=== PATIENT | male | born 1955 | race Caucasian/White ===

== ENCOUNTER → 2019-05-22 | Outpatient (CLI) | payer BC ==
--- NOTE | 2019-05-22 16:42 | RADIOLOGY REPORT (SQ) ---
EXAM DESCRIPTION: PET CT SKULL/THIGH COMPLETED DATE/TIME: 05/22/2019 3:53 pm REASON FOR STUDY: C64.2 MALIGNANT NEOPLASM OF LEFT KIDNEY, EXCEPT RENAL PELVIS C64.2 MALIGNANT NEOP LASM OF LEFT KIDNEY, EXCEPT RENAL PELVIS COMPARISON: None available RADIONUCLIDE AND DOSE: 10.79 MCi F18 FDG The route of agent administration: Intravenous FASTING BLOOD SUGAR: 103 mg/dl CONTRAST TYPE AND DOSE: No CT contrast given. TECHNIQUE: Blood glucose level was verified. Above dose of FDG was injected intravenously. 2-D seg mented attenuation correction images were obtained from the base of the skull to the midthighs. Nonc ontrast CT images were obtained for attenuation correction and fusion with emission images. CT image s were performed without oral or intravenous contrast and are not sensitive for parenchymal lesions. A series of overlapping emission PET images were obtained. Images reviewed and manipulated at [facility] work station by the radiologist. Images stored on PACS. LIMITATIONS: None. FINDINGS: HEAD AND NECK: Activity at the vocal folds without CT correlate, likely physiologic. No o ther areas of abnormal metabolic activity in the soft tissues of the head and neck. CHEST: Ill-defined left suprahilar opacity without significant increased FDG uptake (max SUV 3.6). T here are smaller nodular opacities within the left upper lobe, largest measuring 1.0 cm without signi ficant increased FDG uptake (max SUV 1.2). No other areas of abnormal FDG uptake within the thorax. ABDOMEN AND PELVIS: Background hepatic activity max SUV 3.4. Postsurgical changes from the left neph rectomy. There is ill-defined irregular soft tissue in the surgical bed which abuts the pancreatic t ail. Delineating pancreatic tissue from adjacent soft tissue is limited on this noncontrast exam. N o abnormal FDG uptake (max SUV 1.8). No other abnormal pathologic uptake within the abdomen or pelvi s. Physiologic activity within the gastrointestinal and genitourinary system. PROXIMAL LOWER EXTREMITIES: No areas of abnormal metabolic activity in the soft tissues of the lower extremities. BONES: No focal abnormal FDG uptake within the visualized skeleton. ADDITIONAL CT FINDINGS: No acute findings. Ill-defined left suprahilar opacity on the noncontrast ex am. 11 mm left upper lobe peripheral nodular opacity. Scattered hepatic cyst. Postsurgical changes from the left nephrectomy with ill-defined irregular soft tissue in the surgical bed which abuts the pancreatic tail measuring approximately 2.9 x 2.4 cm (series 4, image 141). IMPRESSION: 1. Ill-defined left suprahilar nodular opacity compatible with biopsy-proven recurrence . No significant FDG uptake (max SUV 3.6). Additional smaller left upper lobe pulmonary nodule also suspicious for metastatic disease but without significant FDG uptake. PET-CT may be of limited bene fit in this patient with known biopsy-proven recurrence as no significant uptake is appreciated withi n these lesions. 2. Postsurgical changes from the left nephrectomy. There is soft tissue fullness within the region of the surgical bed which abuts the pancreatic tail. Findings suspicious for disease recurrence in t he surgical bed although evaluation limited without intravenous contrast. Recommend dedicated contra sted abdomen CT for further characterization. 3. No significant abnormal FDG uptake within the previously described C7 and T9 the vertebral bodies . Findings were discussed with Dr. Chun At 1632 hours on 05/12/2019 TECHNICAL DOCUMENTATION: JOB ID: [id number] [employer]- All Rights Reserved Reading location - IP/workstation name: [email or web address]
== END ==
LOC: RAD 08:13
PROVIDERS: ATTEND Internal Medicine
DX: C64.2 Malignant neoplasm of left kidney, except renal pelvis (principal)
CPT/HCPCS: 78815; A9552

== ENCOUNTER 2019-11-05 09:53 | Observation (INO) | payer BC ==
[2019-11-05 10:36] LABS: HEMATOCRIT 38.3 % (37.9-51.0); HEMOGLOBIN 13.6 g/dL (13.5-17.0); MEAN CORPUSCULAR HEMOGLOBIN 34.3 pg (27.0-33.4); MEAN CORPUSCULAR HGB CONC 35.5 g/dL (32.0-36.0); MEAN CORPUSCULAR VOLUME 97 fl (80-97); PLATELET COUNT 234 10^3/uL (150-450); RED BLOOD COUNT 3.96 10^6/uL (4.35-5.55); RED CELL DISTRIBUTION WIDTH 15.3 % (11.5-14.0)
[2019-11-05 11:00] LABS: ALKALINE PHOSPHATASE 78 U/L (38-126); ANION GAP 11 (5-19); ASPARTATE AMINO TRANSFERASE 27 U/L (17-59); BILIRUBIN,TOTAL 0.9 mg/dL (0.2-1.3); BLOOD UREA NITROGEN 14 mg/dL (7-20); CALCIUM 9.4 mg/dL (8.4-10.2); CARBON DIOXIDE 25 mmol/L (22-30); CHLORIDE 98 mmol/L (98-107); GLUCOSE 267 mg/dL (75-110); POTASSIUM 4.3 mmol/L (3.6-5.0); TOTAL PROTEIN 6.3 g/dL (6.3-8.2)
[2019-11-05 11:01] LABS: ALCOHOL < 10 mg/dL (NONE DETECTED)
[2019-11-05 11:11] LABS: ABSOLUTE MONOCYTES # (MANUAL) 0.6 10^3/uL (0.1-1.4); BAND NEUTROPHILS % (MANUAL) 1 % (3-5); BASOPHILS % (MANUAL) 0 % (0-2); EOSINOPHILS % (MANUAL) 0 % (0-6); LYMPHOCYTES % (MANUAL) 7 % (13-45); MONOCYTES % (MANUAL) 5 % (3-13); SEGMENTED NEUTROPHILS % (MAN) 86 % (42-78); TOTAL CELLS COUNTED 100
[2019-11-05 11:12] LABS: ANISOCYTOSIS SLIGHT; PLATELET COMMENT ADEQUATE; PLATELET LARGE PRESENT; POLYCHROMASIA SLIGHT; TOXIC GRANULATION 2+
[2019-11-05] MEDS ORDERED: NORMAL SALINE 1000 ML 1,000 ML IV ONE (11:27)
[2019-11-05 12:01] LABS: INTERNATIONAL RATION (INR) 1.05; PROTHROMBIN TIME 13.7 SEC (11.4-15.4)
[2019-11-05 12:02] LABS: PARTIAL THROMBOPLASTIN TIME 26.4 SEC (23.5-35.8)
[2019-11-05 12:04] LABS: D-DIMER 0.37 ug/mL (0.00-0.50)
[2019-11-05 12:21] LABS: NT PRO BNP 176 pg/mL (<125)
[2019-11-05 12:22] LABS: TROPONIN I < 0.012 ng/mL
--- NOTE | 2019-11-05 12:31 | RADIOLOGY REPORT (SQ) ---
EXAM DESCRIPTION: CT HEAD WITHOUT IMAGES COMPLETED DATE/TIME: 11/05/2019 12:10 pm REASON FOR STUDY: seizure today/kidney cancer with met to lung COMPARISON: None. TECHNIQUE: Axial images acquired through the brain without intravenous contrast. Images reviewed wi th bone, brain and subdural windows. Additional sagittal and coronal reconstructions were generated. Images stored on PACS. All CT scanners at this facility use dose modulation, iterative reconstruction, and/or weight based d osing when appropriate to reduce radiation dose to as low as reasonably achievable (ALARA). [facility]: Dose Right [facility]: CareDose [facility]: Dose Right [facility]: Teradose 4D [facility]: Encap RADIATION DOSE: CT Rad equipment meets quality standard of care and radiation dose reduction techniq ues were employed. CTDIvol: 53.2 mGy. DLP: 1097 mGy-cm. LIMITATIONS: None. FINDINGS: There is no acute intracranial hemorrhage, vascular territorial infarct, extra-axial fluid collection, mass effect or midline shift. The kennedy-white matter differentiation is preserved. Ther e is no effacement of the cerebral sulci or basal subarachnoid cisterns. The caliber of the ventricles is concordant with the degree of sulcation. The left maxillary sinus is opacified. The other paranasal sinuses and ethmoid air cells are clear. The orbits and globes are intact. There is no fracture of the calvarium. IMPRESSION: 1 No acute intracranial abnormality. 2. Opacification of the left maxillary sinus - clinical correlation to exclude an acute sinusitis is recommended. EVIDENCE OF ACUTE STROKE: NO. COMMENT: Quality ID # [id number]: Final reports with documentation of one or more dose reduction techniques (e.g., Automated exposure control, adjustment of the mA and/or kV according to patient size, use of iterative reconstruction technique) TECHNICAL DOCUMENTATION: JOB ID: [id number] 2010 [employer]- All Rights Reserved Reading location - IP/workstation name: [email or web address]
--- NOTE | 2019-11-05 13:02 | RADIOLOGY REPORT (SQ) ---
EXAM DESCRIPTION: MRI HEAD WITHOUT IMAGES COMPLETED DATE/TIME: 11/05/2019 12:37 pm REASON FOR STUDY: seizure/kidney cancer w met to lung COMPARISON: None. TECHNIQUE: Multiplanar imaging includes non-contrasted T1, T2, FLAIR, and diffusion with ADC map seq uences. Images stored on PACS. LIMITATIONS: None. FINDINGS: The sella turcica, corpus callosum, and craniocervical junction are normal in appearance. There is no restricted diffusion on the DWI. The focal and confluent areas of high T2/FLAIR signal s cattered throughout the supratentorial subcortical and periventricular white matter are nonspecific a nd could represent the sequela of chronic microvascular ischemia. There is no acute intracranial hem orrhage, vasogenic edema, extra-axial fluid collection, mass effect or midline shift. The kennedy-white matter differentiation is preserved. There is no effacement of the cerebral sulci or basal subarach noid cisterns. The caliber of the ventricles is concordant with the degree of sulcation. The intracranial vascular flow voids are preserved. There is no susceptibility artifact on the gradi ent sequence. There is a subperiosteal lipoma along the vertex of the calvarium. The left maxillary sinus is opaci fied. IMPRESSION: 1. No acute intracranial abnormality. 2. Focal and confluent areas of high T2/FLAIR signal scattered throughout the supratentorial perivent ricular and subcortical white matter are nonspecific and could represent the sequela of chronic micro vascular ischemia. 3. Opacification of the left maxillary sinus. Correlation with clinical signs and symptoms is recom mended to exclude an acute sinusitis. EVIDENCE OF ACUTE STROKE: NO. TECHNICAL DOCUMENTATION: JOB ID: [id number] [employer]- All Rights Reserved Reading location - IP/workstation name: [email or web address]-
[2019-11-05] MEDS ORDERED: LISINOPRIL 10 MG TABLET PO ONE (13:13)
[2019-11-05] MEDS ORDERED: ATENOLOL 50 MG TABLET PO ONE (13:14)
--- NOTE | 2019-11-05 13:50 | RADIOLOGY REPORT (SQ) ---
EXAM DESCRIPTION: CHEST SINGLE VIEW IMAGES COMPLETED DATE/TIME: 11/05/2019 1:32 pm REASON FOR STUDY: Seizure/HTN COMPARISON: PET from 05/22/2019. EXAM PARAMETERS: NUMBER OF VIEWS: One view. TECHNIQUE: An AP view of the chest was obtained. RADIATION DOSE: NA LIMITATIONS: None. FINDINGS: LUNGS AND PLEURA: The costophrenic sulci are blunted. There is an 15 x 10 mm ovoid nodule in the lateral aspect of the inferior left hemithorax. There is no consolidation or pneumothorax MEDIASTINUM AND HILAR STRUCTURES: No mediastinal or hilar contour abnormality. HEART AND VASCULAR STRUCTURES: The cardiac silhouette and pulmonary vasculature are within normal herrera its. BONES: No acute findings. HARDWARE: None in the chest. OTHER: Low inspiratory lung volumes. IMPRESSION: 1. Low inspiratory lung volumes with small pleural effusions and bibasilar atelectasis. 2. Probable 15 x 10 mm ovoid nodule in the lateral aspect of the inferior left hemithorax. TECHNICAL DOCUMENTATION: JOB ID: [id number] 2010 [employer]- All Rights Reserved Reading location - IP/workstation name: [email or web address]
--- NOTE | 2019-11-05 14:27 | ER Document Report ---
Entered by ZHAO GANDHI SCRIBE 11/05/19 1115 Acting as scribe for:IVY BILL MD ED General - General Chief Complaint: Probable Seizure Stated Complaint: POSSIBLE SEIZURE Time Seen by Provider: 11/05/19 10:22 Primary Care Provider: NICHO MATHEWS NP [Primary Care Provider] - Follow up as needed Information source: Patient Notes: This 64-year-old male presents to the emergency department by request of physician's office after patient had a possible seizure witnessed in the doctor's office during his appointment today. Patient explained that he has been having a petit mal seizure once a day for the past several weeks. Patient states that this morning after his shower, he had a petit mal seizure and then while at his doctor's appointment he had another episode. Physician told patient to report to the emergency department for a seizure work-up. Patient notes that he feels that the onset of his seizures are due to exertion. Patient reports that today's episode lasted longer than usual. Patient describes that he just "feels like I'm falling asleep" and his states he is unconscious during the duration of the episode "which lasts a minute or two". Patient reports dizziness. Patient denies tongue biting, headache, chest pain, fecal incontinence, urinary incontinence or head trauma. 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 Patient states that he recently had T-cell infusion with no relief so he was started on the high-dose prednisone (100 mg every day). Patient is stating that he has "stepped down" to 10 mg per week. TRAVEL OUTSIDE OF THE [place] IN LAST 30 DAYS: No - Related Data Allergies/Adverse Reactions: No Known Allergies Allergy (Unverified 11/05/19 11:08) Home Medications: lisinopril, prednisone, "and some others that I cannot remember right now". Past Medical History - General Information source: Patient - Social History Smoking Status: Never Smoker Cigarette use (# per day): No Chew tobacco use (# tins/day): No Lives with: Spouse/Significant other Family History: Reviewed & Not Pertinent Patient has homicidal ideation: No Pulmonary Medical History: Reports: Hx Sleep Apnea Malignancy Medical History: Reports Hx Lung Cancer, Reports Hx Renal (Kidney) Cancer Past Surgical History: Reports: Hx Kidney (Renal Surgery) - Nephrectomy-left Review of Systems - Review of Systems Constitutional: No symptoms reported EENT: No symptoms reported Cardiovascular: See HPI, Dizziness. denies: Chest pain Respiratory: No symptoms reported Gastrointestinal: See HPI. denies: Fecal incontinence Genitourinary: See HPI. denies: Incontinence Male Genitourinary: No symptoms reported Musculoskeletal: No symptoms reported Skin: No symptoms reported Hematologic/Lymphatic: No symptoms reported Neurological/Psychological: See HPI, Seizure, Lost consciousness. denies: Headaches -: Yes All other systems reviewed and negative Physical Exam - Vital signs Vitals: Temp Pulse Resp BP Pulse Ox 97.9 F 130 H 25 H 177/114 H 100 11/05/19 10:00 11/05/19 10:00 11/05/19 10:00 11/05/19 10:00 11/05/19 10:00 - Notes Notes: Physical Exam: General: Alert, appears well. HEENT: Normocephalic. Atraumatic. PERRL. Extraocular movements intact. Oropharynx clear. Neck: Supple. Non-tender. Respiratory: No respiratory distress. Clear and equal breath sounds bilaterally. Cardiovascular: Regular rate and rhythm. Abdominal: Normal Inspection. Non-tender. No distension. Normal Bowel Sounds. Back: No gross abnormalities. Extremities: Moves all four extremities. Upper extremities: Normal inspection. Normal ROM. Lower extremities: Normal inspection. No edema. Normal ROM. Neurological: Normal cognition. AAOx4. Normal speech. NIH:0 Psychological: Normal affect. Normal Mood. Skin: Warm. Dry. Normal color. Course - Vital Signs Vital signs: Temp Pulse Resp BP Pulse Ox 98.2 F 130 H 22 H 136/102 H 98 11/05/19 10:24 11/05/19 10:00 11/05/19 13:29 11/05/19 13:29 11/05/19 13:29 - Laboratory Result Diagrams: 11/05/19 10:20 11/05/19 10:20 Laboratory results interpreted by me: 11/05/19 11/05/19 11/05/19 10:20 10:20 10:20 WBC 12.0 H RBC 3.96 L MCH 34.3 H RDW 15.3 H Seg Neuts % (Manual) 86 H Band Neutrophils % 1 L Lymphocytes % (Manual) 7 L Abs Neuts (Manual) 10.4 H Sodium 133.9 L Glucose 267 H NT-Pro-B Natriuret Pep 176 H Discharge - Discharge Clinical Impression: Petit mal seizure status, Malignant neoplasm of kidney metastatic to lung, COPD (chronic obstructive pulmonary disease), Hyperglycemia, drug-induced Condition: Good Disposition: ADMITTED OBSERVATION Admitting Provider: Ernie (Hospitalist) Unit Admitted: Telemetry Referrals: NICHO MATHEWS, DIRECTOR OF DIVERSITY AND INCLUSION [Primary Care Provider] - Follow up as needed ED NIH Stroke Scale - NIH Stroke Scale *: 1. NIH scale should be completed with appropriate accompanying assessment tools. *: 2. The NIH should reflect what the patient is capable of doing and should not be coached by the clinician. 1a. Level of Consciousness: 0=Alert;keenly responsive -: 1=Drowsy -: 2=Obtunded -: 3=Coma/unresponsive or reflex to noxious stimuli. 1a. Responses: 0 1b. Orientation Questions: a. What month is it? -: b. How old are you? -: 0=Answers both questions correctly. -: 1=Answers one question correctly or patient is intubated or has orotracheal trauma. -: 2=Answers neither question correctly. 1c. Response to commands: a. Open and close eyes? -: b. Piccolo Mechanic and release hand? -: Credit is given despite weakness. Demonstration of task is permitted. Substitute command if hands cannot be used. -: 0=Performs both tasks correctly -: 1=Performs one task correctly -: 2=Performs neither task correctly 1c. Responses: 0 2. Gaze: Establish eye contact and instruct patient to "Follow my finger" -: 0=Normal -: 1=Partial gaze palsy. Gaze is abnormal in one or both eyes, but where forced deviation or total gaze paresis is not present. -: 2=Forced deviation or total gaze paresis. 2. Responses: 0 3. Visual Shirley: Sees fingers in all four quadrants. -: 0=No visual loss. -: 1=Partial hemianopsia. -: 2=Complete hemianopsia. -: 3=Bilateral hemianopsia (including Cortical blindness) 3. Responses: 0 4. Facial Movement: Instruct patient to: -: a. Show me your teeth -: b. Raise your eyebrows -: c. Close your eyes -: d. Smile -: 0=Normal symmetrical movement -: 1=Minor paralysis (flattened nasolabial fold, asymmetry on smiling). -: 2=Partial paralysis (total or near total paralysis of lower face). -: 3=Complete paralysis of upper and lower face 4. Responses: 0 5. Motor functions (left arm): Alternate sides and extend each arm with palms down (90 degrees if sitting or 45 degrees for supine). -: 0=No drift;limb holds for full 10 seconds. -: 1=Drift; limb holds but drifts down before full 10 seconds, but does not hit bed. -: 2=Some effort against gravity; limb cannot get to or maintain position. -: 3=No effort against gravity; limb falls. -: 4=No movement. -: UN=Amputation, joint fusion, explain in comments. 5. Responses (left arm): 0 5. Motor Functions (right arm): Alternate sides and extend each arm with palms down (90 degrees if sitting or 45 degrees for supine). -: 0=No drift;limb holds for full 10 seconds. -: 1=Drift; limb holds but drifts down before full 10 seconds, but does not hit bed. -: 2=Some effort against gravity; limb cannot get to or maintain position. -: 3=No effort against gravity; limb falls. -: 4=No movement. -: UN=Amputation, joint fusion, explain in comments. 6. Motor Functions (left leg): With patient lying supine, alternate sides and extend each leg (30 degrees always while supine). -: 0=No drift, leg holds position for full 5 seconds -: 1=Drift; leg falls before full 5 seconds but does not hit bed. -: 2=Some effort against gravity, leg falls to bed but some effort against gravity. -: 3=No effort against gravity, leg falls to bed immediately. -: 4=No movement. -: UN=Amputation, joint fusion; explain in comments. 6. Responses (left leg): 0 6. Motor Functions (right leg): With patient lying supine, alternate sides and extend each leg (30 degrees always while supine). -: 0=No drift, leg holds position for full 5 seconds -: 1=Drift; leg falls before full 5 seconds but does not hit bed. -: 2=Some effort against gravity, leg falls to bed but some effort against gravity. -: 3=No effort against gravity, leg falls to bed immediately. -: 4=No movement. -: UN=Amputation, joint fusion; explain in comments. 7. Limb Ataxia: With eyes open instruct patient to: -: a. "Touch your finger to your nose". -: b. "Touch your heel to your jean" -: 0=Absent -: 1=Present in one limb. -: 2=Present in two limbs. -: UN=Amputation or joint fusion; explain in comments. 7. Responses: 0 8. Sensory: Test sensation using pinprick or noxious stimuli. Test as many body parts as possible. -: 0=Normal;no sensory loss -: 1=Mile to moderate sensory loss (patient feels pin prick but is less sharp on affected side). -: 2=Severe or total sensory loss. 8. Responses: 0 9. Best Language: Instruct patient to: -: a. "Describe what you see in this picture." -: b. "Name the items in this picture." -: c. "Read these sentences." -: 0=No aphasia, normal -: 1=Mild to moderate aphasia. -: 2=Severe aphasia -: 3=Mute, global aphasia, no usable speech or auditory comprehension. 9. Responses: 0 10. Articulation, Dysarthia: Instruct patient to: -: "Read these words" or "Repeat these words" -: 0=Normal -: 1=Mild to moderate; patient may slur some words but can be understood without difficulty. -: 2=Severe; patients speech so slurred as to be unintelligible in the absence of dysphasia. -: UN=Intubated or other physical barrier, explain in comments. 10. Responses: 0 11. Extinction or inattention: 0=No abnormality -: 1= Visual, tactile, auditory, spatial, or personal inattention or extinction to bilateral simulation in one or the sensory modalities. -: 2=Profound hsena-inattention or shena-inattention to more than one modality; does not recognize own hand. 11. Responses: 0 - increased pain to light tounch on left lwer leg. Total Score: 0 I personally performed the services described in the documentation, reviewed and edited the documentation which was dictated to the scribe in my presence, and it accurately records my words and actions.
[2019-11-05] MEDS ORDERED: ONDANSETRON HCL INJ/PF 4 MG/2 ML SDV IV PRN (15:26)
[2019-11-05] MEDS ORDERED: IPRATROPIUM/ALBUTEROL 0.5-2.5 MG/3 ML AMPUL NEB PRN (15:26)
[2019-11-05] MEDS ORDERED: DEXTROSE 50%-WATER 25 GM/50 ML DISP.SYRIN IV PRN ×2 (15:29)
[2019-11-05] MEDS ORDERED: DEXTROSE 40% GEL 15 GM TUBE PO PRN ×2 (15:29)
[2019-11-05] MEDS ORDERED: GLUCAGON,HUMAN RECOMB 1 MG INJ IM PRN (15:29)
[2019-11-05] MEDS: INSULIN LISPRO 100 UNIT/ML 3 ML VIAL SUBCUT SCH ×2 (16:01→23:12)
--- NOTE | 2019-11-05 16:06 | PDOC H&P ---
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 Chun's office after being witnessed to have a possible seizure episode. Discussed with Dr. Chun informs me that he witnessed the episode and during the episode patient was having involuntary jerks of his right side, blankly staring into space and not responding to verbal stimulus. No grand mal convulsions were noted. Patient's symptoms lasted about 3 minutes. On discussion with patient he denies any postictal state and actual ly states that he is conscious throughout these episodes and subsequently and can hear people talking to him but cannot respond. States these episodes have been happening for the past couple of weeks almost once a day at least. He has not yet seen a neurologist. Currently patient is fully conversational and gives adequate history. Past Medical History Pulmonary Medical History: Reports: Sleep Apnea Malignancy Medical History: Reports: Lung Cancer, Renal (Kidney) Cancer Past Surgical History Past Surgical History: Reports: Other - Nephrectomy Social History Lives with: Spouse/Significant other Smoking Status: Never Smoker - Advance Directive Resuscitation Status: Full Code Family History Family History: DM, Hypertension Parental Family History Reviewed: Yes Children Family History Reviewed: NA Sibling(s) Family History Reviewed.: Yes Medication/Allergy Home Medications: Albuterol Sulfate [Proair Hfa Inhalation Aerosol 8.5 gm Mdi] 2 puff IH Q6HP PRN 11/05/19 Apixaban [Eliquis 5 mg Tablet] 5 mg PO BID 11/05/19 Atenolol [Tenormin 50 mg Tablet] 50 mg PO DAILY 11/05/19 Budesonide/Formoterol Fumarate [Symbicort Hfa 160-4.5 Mcg Inhaler 6 gm] 2 puff IH Q12 11/05/19 Gabapentin 300 mg PO BID 11/05/19 Imiquimod [Aldara 5% Cream 0.25 gm Pkt] 1 packet TOP ASDIR PRN 11/05/19 Levothyroxine Sodium 100 mg PO DAILY 11/05/19 Lisinopril [Zestril] 40 mg PO DAILY 11/05/19 Prednisone [Deltasone 20 mg Tablet] 50 mg PO ASDIR PRN 11/05/19 Allergies/Adverse Reactions: No Known Allergies Allergy (Unverified 11/05/19 11:08) Review of Systems Constitutional: ABSENT: chills, fatigue, fever(s) Eyes: ABSENT: visual disturbances - Nothing acute Nose, Mouth, and Throat: ABSENT: headache(s) Cardiovascular: ABSENT: chest pain Respiratory: ABSENT: dyspnea Gastrointestinal: PRESENT: abdominal pain. ABSENT: nausea Integumentary: ABSENT: diaphoresis Neurological: PRESENT: paresthesias - Chronic lower extremities. ABSENT: confusion, dizziness, focal weakness, syncope Psychiatric: ABSENT: anxiety Endocrine: PRESENT: flushing Allergic/Immunologic: ABSENT: seasonal rhinorrhea Physical Exam Vital Signs: Temp Pulse Resp BP Pulse Ox 98.2 F 130 H 19 128/93 H 98 11/05/19 10:24 11/05/19 10:00 11/05/19 15:01 11/05/19 15:01 11/05/19 15:01 Intake & Output 11/04/19 11/05/19 11/06/19 06:59 06:59 06:59 Weight 100.1 kg General appearance: PRESENT: no acute distress, cooperative Head exam: ABSENT: atraumatic Eye exam: PRESENT: EOMI, PERRLA. ABSENT: scleral icterus Mouth exam: PRESENT: neck supple Neck exam: ABSENT: JVD Respiratory exam: PRESENT: clear to auscultation cm, unlabored Cardiovascular exam: PRESENT: RRR, +S1, +S2. ABSENT: tachycardia GI/Abdominal exam: PRESENT: normal bowel sounds, soft, tenderness. ABSENT: distended, firm, guarding, rebound, rigid Rectal exam: PRESENT: deferred Extremities exam: ABSENT: calf tenderness Neurological exam: PRESENT: alert, awake, oriented to person, oriented to place, oriented to time, oriented to situation, CN II-XII grossly intact. ABSENT: motor sensory deficit, aphasic Psychiatric exam: ABSENT: agitated, anxious Focused psych exam: ABSENT: internal stimuli, pressured speech Skin exam: PRESENT: other - Flushed skin Results Laboratory Results: 11/05/19 10:20 11/05/19 10:20 11/05/19 11/05/19 10:20 10:20 WBC 12.0 H RBC 3.96 L Hgb 13.6 Hct 38.3 MCV 97 MCH 34.3 H MCHC 35.5 RDW 15.3 H Plt Count 234 Seg Neutrophils % Not Reportable Sodium 133.9 L Potassium 4.3 Chloride 98 Carbon Dioxide 25 Anion Gap 11 BUN 14 Creatinine 1.01 Est GFR ( Amer) > 60 Glucose 267 H Calcium 9.4 Magnesium 2.1 Total Bilirubin 0.9 AST 27 Alkaline Phosphatase 78 Total Protein 6.3 Albumin 4.0 11/05/19 11/05/19 10:20 13:30 Troponin I < 0.012 0.013 NT-Pro-B Natriuret Pep 176 H Impressions: Head CT 11/05/19 11:28 IMPRESSION: 1 No acute intracranial abnormality. 2. Opacification of the left maxillary sinus - clinical correlation to exclude an acute sinusitis is recommended. EVIDENCE OF ACUTE STROKE: NO. Head MRI 11/05/19 11:31 IMPRESSION: 1. No acute intracranial abnormality. 2. Focal and confluent areas of high T2/FLAIR signal scattered throughout the supratentorial periventricular and subcortical white matter are nonspecific and could represent the sequela of chronic microvascular ischemia. 3. Opacification of the left maxillary sinus. Correlation with clinical signs and symptoms is recommended to exclude an acute sinusitis. EVIDENCE OF ACUTE STROKE: NO. Chest X-Ray 11/05/19 13:17 IMPRESSION: 1. Low inspiratory lung volumes with small pleural effusions and bibasilar atelectasis. 2. Probable 15 x 10 mm ovoid nodule in the lateral aspect of the inferior left hemithorax. Assessment and Plan - Diagnosis (1) Partial seizure Is this a current diagnosis for this admission?: Yes Plan: We will admit for observation. Head MRI does not show any evidence of stroke, structural disease, malignancy or other acute causes but does show some evidence of chronic cerebral vascular disease. Seizure precautions. No electrolyte abnormalities to account for these episodes. Check EEG We will hold off on starting AED prophylaxis just yet but if recurs while inpatient, will consider starting on Keppra or Trileptal. Patient will need follow-up with a neurologist in outpatient setting. Have discussed this with patient. (2) COPD (chronic obstructive pulmonary disease) Is this a current diagnosis for this admission?: Yes Plan: Nebs as needed. LABA/ICS. No evidence of exacerbation. (3) Hyperglycemia, drug-induced Is this a current diagnosis for this admission?: Yes Plan: Likely secondary to patient's chronic prednisone. Denies history of diabetes prior to starting high-dose prednisone a few months ago. Monitor with Accu- Cheks. Sliding scale insulin. (4) Malignant neoplasm of kidney metastatic to lung Is this a current diagnosis for this admission?: Yes Plan: History of left renal cancer with mets to C7, T9 and lungs. Follows with Dr. Chun whom I have discussed with. Had nephrectomy in 2011. 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 Experienced thyroid damage and later had to be started on thyroid replacement therapy. Started on high-dose prednisone which is currently being tapered off. Continue outpatient follow-up with Dr. Chun. - Time Time Spent with patient: 35 or more minutes
[2019-11-05] MEDS: APIXABAN 5 MG TABLET PO SCH (17:34)
[2019-11-05] MEDS: GABAPENTIN 300 MG CAPSULE PO SCH (17:34)
--- NOTE | 2019-11-05 19:09 | NEURO WORKBENCH EEG REPORT ---
EEG Report Patient: Ray Faith ID: [id number] Referring Doctor: Devora Onwe Date: 11/05/2019 Reason for study: Evaluate Epileptiform activity Medications: Levothyroxine, Eliquis, Prednisone, Albuterol, Oxycodone prn, Cyclobenzaprine, Proair, Symbicort, Lisinopril, Gabapentin History: This is a 64 year old male with a history of kidney disease s/p nephrectomy in 2011, HTN, melanoma resection 1990. The patient was admitted with seizure (first noted a week prior). This EEG was requested for evaluation of epileptiform activity. EEG Interpretation: This EEG was recorded during wakefulness and drowsiness. No definitive sleep was recorded. The awake EEG is characterized by a well organized background with a well developed and reactive posterior dominant rhythm (PDR) of approximately 8 Hz. The remainder of the background consisted of low amplitude frontally predominant beta activity. The EEG is symmetric in amplitudes and frequencies. There was occasional Mu rhythm noted in the bilateral central regions. Photic stimulation resulted in minimal photic driving, and there was no epileptiform activity elicited with photic stimulation. There were no epileptiform abnormalities (no sharp waves and no spikes). There were no seizures. The EKG showed an irregular rhythm with rates typically 66-76 beats per minute. EEG Impression: This EEG is within normal limits for age. There was no epileptiform activity or seizures. A single normal routine EEG does not rule out the possibility of epilepsy. If there is high clinical suspicion for epilepsy, then additional EEG evaluation should be considered with a sleep-deprived EEG or more prolonged EEG monitoring. Further cardiac evaluation recommended for irregular rhythm noted. INTERPRETING NEUROLOGIST: Erick Elder MD Board certified by the [place] [employer] in Neurology, Clinical Neurophysiology, and Sleep Medicine [facility]
[2019-11-05 20:20] LABS: APPEARANCE,URINE SLIGHTLY-CLOUDY; BILIRUBIN,URINE NEGATIVE (NEGATIVE); CALCIUM OXALATE CRYSTALS,URINE FEW /HPF; COLOR,URINE YELLOW; GLUCOSE, URINE 150 mg/dL (NEGATIVE); KETONES,URINE NEGATIVE (NEGATIVE); LEUKOCYTE ESTERASE,URINE NEGATIVE (NEGATIVE); NITRITE,URINE NEGATIVE (NEGATIVE); PROTEIN,URINE 30 mg/dL (NEGATIVE); URINE SPECIFIC GRAVITY 1.027
[2019-11-05 20:35] LABS: URINE AMPHETAMINES SCREEN NEGATIVE; URINE BARBITURATES SCREEN NEGATIVE; URINE BENZODIAZEPINES SCREEN NEGATIVE; URINE COCAINE SCREEN NEGATIVE; URINE MARIJUANA (THC) SCREEN NEGATIVE; URINE METHADONE SCREEN NEGATIVE; URINE PHENCYCLIDINE SCREEN NEGATIVE
[2019-11-05] MEDS: VALPROATE SODIUM SYRUP 250 MG/5 ML UDCUP PO SCH (22:02)
--- NOTE | 2019-11-05 22:34 | EKG REPORT ---
SEVERITY:- BORDERLINE ECG - SINUS TACHYCARDIA BORDERLINE T WAVE ABNORMALITIES : Confirmed by: Juanita Stafford 05-Nov-2019 22:32:49
[2019-11-06] MEDS: ACETAMINOPHEN 325 MG TABLET PO PRN ×3 (02:11→17:30)
[2019-11-06] MEDS: VALPROATE SODIUM SYRUP 250 MG/5 ML UDCUP PO SCH (05:45)
[2019-11-06 06:06] LABS: ANION GAP 7 (5-19); BLOOD UREA NITROGEN 19 mg/dL (7-20); CARBON DIOXIDE 29 mmol/L (22-30); CHLORIDE 98 mmol/L (98-107); CREATINE KINASE 81 U/L (55-170); GLUCOSE 141 mg/dL (75-110); POTASSIUM 3.7 mmol/L (3.6-5.0)
[2019-11-06] MEDS: LEVOTHYROXINE SODIUM 0.1 MG TABLET PO SCH (07:53)
[2019-11-06] MEDS: INSULIN LISPRO 100 UNIT/ML 3 ML VIAL SUBCUT SCH ×4 (07:54→21:21)
[2019-11-06] MEDS: APIXABAN 5 MG TABLET PO SCH ×2 (09:22→17:28)
[2019-11-06] MEDS: LISINOPRIL 10 MG TABLET PO SCH (09:22)
[2019-11-06] MEDS: FLUTICASONE/VILANTEROL 200-25 MCG/DOSE IH SCH (09:22)
[2019-11-06] MEDS: GABAPENTIN 300 MG CAPSULE PO SCH ×2 (09:22→17:28)
[2019-11-06] MEDS: ATENOLOL 50 MG TABLET PO SCH (09:22)
[2019-11-06] MEDS: PREDNISONE 20 MG TABLET PO SCH (09:22)
[2019-11-06] MEDS ORDERED: CYCLOBENZAPRINE HCL 10 MG TABLET PO PRN (11:17)
--- NOTE | 2019-11-06 13:24 | PDOC PROGRESS REPORT ---
Subjective Progress Note for:: 11/06/19 Reason For Visit: PARTIAL SEIZURE 11/06/2019 Noted yesterday afternoon with seizure disorder, first onset about 2 weeks ago occurring daily Physical Exam Vital Signs: Temp Pulse Resp BP Pulse Ox 97.5 F 69 17 104/66 94 11/06/19 11:13 11/06/19 11:13 11/06/19 11:13 11/06/19 11:13 11/06/19 11:13 Intake & Output 11/05/19 11/06/19 11/07/19 06:59 06:59 06:59 Intake Total 420 Balance 420 Weight 103.1 kg General appearance: PRESENT: no acute distress - Sitting up in chair with no complaints although he states he did have another seizure last night Respiratory exam: PRESENT: clear to auscultation cm. ABSENT: rales, rhonchi, wheezes Cardiovascular exam: PRESENT: RRR. ABSENT: diastolic murmur, rubs, systolic murmur Neurological exam: PRESENT: alert, awake, oriented to person, oriented to place, oriented to time, oriented to situation, CN II-XII grossly intact. ABSENT: motor sensory deficit Psychiatric exam: PRESENT: anxious Results Laboratory Results: 11/05/19 10:20 11/06/19 04:33 11/05/19 11/06/19 11/06/19 20:00 04:33 04:33 Sodium 133.6 L Potassium 3.7 Chloride 98 Carbon Dioxide 29 Anion Gap 7 BUN 19 Creatinine 1.13 Est GFR ( Amer) > 60 Glucose 141 H Calcium 9.0 Magnesium 2.0 TSH 23.70 H Urine Color YELLOW Urine Appearance SLIGHTLY-CLOUDY Urine pH 5.0 Ur Specific [place] 1.027 Urine Protein 30 H Urine Glucose (UA) 150 H Urine Ketones NEGATIVE Urine Blood NEGATIVE Urine Nitrite NEGATIVE Ur Leukocyte Esterase NEGATIVE Urine WBC (Auto) 4 Urine RBC (Auto) 1 11/05/19 11/05/19 11/06/19 10:20 13:30 04:33 Creatine Kinase 81 Troponin I < 0.012 0.013 NT-Pro-B Natriuret Pep 176 H Impressions: Head CT 11/05/19 11:28 IMPRESSION: 1 No acute intracranial abnormality. 2. Opacification of the left maxillary sinus - clinical correlation to exclude an acute sinusitis is recommended. EVIDENCE OF ACUTE STROKE: NO. Head MRI 11/05/19 11:31 IMPRESSION: 1. No acute intracranial abnormality. 2. Focal and confluent areas of high T2/FLAIR signal scattered throughout the supratentorial periventricular and subcortical white matter are nonspecific and could represent the sequela of chronic microvascular ischemia. 3. Opacification of the left maxillary sinus. Correlation with clinical signs and symptoms is recommended to exclude an acute sinusitis. EVIDENCE OF ACUTE STROKE: NO. Chest X-Ray 11/05/19 13:17 IMPRESSION: 1. Low inspiratory lung volumes with small pleural effusions and bibasilar atelectasis. 2. Probable 15 x 10 mm ovoid nodule in the lateral aspect of the inferior left hemithorax. Assessment and Plan - Diagnosis (1) Thyroid dysfunction Is this a current diagnosis for this admission?: Yes (2) Peripheral neuropathy, idiopathic Is this a current diagnosis for this admission?: Yes (3) COPD (chronic obstructive pulmonary disease) Is this a current diagnosis for this admission?: Yes (4) Hyperglycemia, drug-induced Is this a current diagnosis for this admission?: Yes (5) Malignant neoplasm of kidney metastatic to lung Is this a current diagnosis for this admission?: Yes (6) Partial seizure Is this a current diagnosis for this admission?: Yes - Plan Summary Summary: 11/06/2019 Temperature 97.2 pulse 81 blood pressure 112/73 O2 sats about 93% on CPAP CBC is normal TSH is elevated at 23.70 patient is on Synthroid 100 mcg daily Patient was started on Depakene syrup which seems to cause GERD. Have also added Pepcid IV every 12 hours. It was changed to Depakote ER 500 mg MRI of the brain shows sinusitis of the left maxillary sinus patient states that this is chronic, it also shows microvascular changes We will continue patient's gabapentin for his neuropathy as well as the Depakote, as we discharge home tomorrow Talk to patient about increasing his Synthroid if this is never been done before. He evidently had trouble with his thyroid following immunotherapy treatment for his renal cell cancer Patient is in no distress at this time - Time Time Spent with patient: 35 or more minutes
[2019-11-06] MEDS: DIVALPROEX SODIUM 500 MG TAB.SR.24H PO SCH (13:39)
[2019-11-06] MEDS: FAMOTIDINE INJ/PF 20 MG/2 ML SDV IV SCH (21:22)
[2019-11-07] MEDS: INSULIN LISPRO 100 UNIT/ML 3 ML VIAL SUBCUT SCH ×2 (07:25→11:40)
[2019-11-07] MEDS: ACETAMINOPHEN 325 MG TABLET PO PRN (09:22)
[2019-11-07] MEDS: APIXABAN 5 MG TABLET PO SCH (09:22)
[2019-11-07] MEDS: FAMOTIDINE INJ/PF 20 MG/2 ML SDV IV SCH (09:22)
[2019-11-07] MEDS: ATENOLOL 50 MG TABLET PO SCH (09:23)
[2019-11-07] MEDS: LEVOTHYROXINE SODIUM 0.1 MG TABLET PO SCH (09:23)
[2019-11-07] MEDS: GABAPENTIN 300 MG CAPSULE PO SCH (09:23)
[2019-11-07] MEDS: PREDNISONE 20 MG TABLET PO SCH (09:23)
[2019-11-07] MEDS: FLUTICASONE/VILANTEROL 200-25 MCG/DOSE IH SCH (09:23)
[2019-11-07] MEDS: LISINOPRIL 10 MG TABLET PO SCH (09:23)
[2019-11-07 11:55] VITALS: BP 116/85
[2019-11-07] MEDS: DIVALPROEX SODIUM 500 MG TAB.SR.24H PO SCH (13:02)
== END 2019-11-07 13:14 | disposition home or self-care (01) ==
LOC: ER 09:53 → EH 14:35 → 4N 17:09
PROVIDERS: ADMIT Internal Medicine; ATTEND Physician Assistant
DX: G40.89 Other seizures (principal); C64.2 Malignant neoplasm of left kidney, except renal pelvis; C78.00 Secondary malignant neoplasm of unspecified lung; C79.51 Secondary malignant neoplasm of bone; J44.9 Chronic obstructive pulmonary disease, unspecified; R73.9 Hyperglycemia, unspecified; T50.905A Adverse effect of unspecified drugs, medicaments and biological substances, initial encounter; G60.9 Hereditary and idiopathic neuropathy, unspecified; E07.89 Other specified disorders of thyroid; T45.1X5S Adverse effect of antineoplastic and immunosuppressive drugs, sequela; S16.1XXA Strain of muscle, fascia and tendon at neck level, initial encounter; X50.9XXA Other and unspecified overexertion or strenuous movements or postures, initial encounter; I67.89 Other cerebrovascular disease; J32.0 Chronic maxillary sinusitis; R00.0 Tachycardia, unspecified; R10.9 Unspecified abdominal pain; Z79.52 Long term (current) use of systemic steroids; Z79.890 Hormone replacement therapy; Z79.899 Other long term (current) drug therapy; Z90.5 Acquired absence of kidney; Z86.718 Personal history of other venous thrombosis and embolism; Z86.711 Personal history of pulmonary embolism; Z82.49 Family history of ischemic heart disease and other diseases of the circulatory system; Z79.02 Long term (current) use of antithrombotics/antiplatelets
CPT/HCPCS: 95819 ×2; 93005; 99285; 96360; 96361; 36415 ×2; 82962 ×3; 80307 ×2; 82550; 83735 ×2; 84443; 85025; 85610; 85730; 80048; 80053; 81001; 84484; 85379; 83880; 70551; 71045; 70450; 93010; 94660 ×3; G0378 ×4; J7512 ×2; J3490 ×3; J2405; J7030; S0028 ×2

== ENCOUNTER → 2019-12-13 | Outpatient (CLI) | payer BC ==
--- NOTE | 2019-12-13 15:20 | RADIOLOGY REPORT (SQ) ---
EXAM DESCRIPTION: CT CHEST WITH; CT ABD/PELVIS WITH IV ONLY IMAGES COMPLETED DATE/TIME: 12/13/2019 10:30 am REASON FOR STUDY: KIDNEY CA C64.2 MALIGNANT NEOPLASM OF LEFT KIDNEY, EXCEPT RENAL PELVIS CONTRAST TYPE AND DOSE: 100 cc Omnipaque 300- low osmolar. RENAL FUNCTION: Creatinine 1.2 COMPARISON: PET-CT 05/22/2019 TECHNIQUE: CT scan of the chest performed using helical scanning technique with dynamic intravenous contrast injection. Images reviewed with lung, soft tissue and bone windows. Reconstructed coronal a nd sagittal MPR images reviewed. All images stored on PACS. All CT scanners at this facility use dose modulation, iterative reconstruction, and/or weight based d osing when appropriate to reduce radiation dose to as low as reasonably achievable (ALARA). [facility]: Dose Right [facility]: CareDose [facility]: Dose Right [facility]: Teradose 4D [facility]: TriggerMail RADIATION DOSE: CT Rad equipment meets quality standard of care and radiation dose reduction techniq ues were employed. CTDIvol: 13.0 - 13.3 mGy. DLP: 2111 mGy-cm. . LIMITATIONS: None. FINDINGS: AXILLAE: No adenopathy. CHEST WALL: No masses. No subcutaneous air. LUNGS: Stable 8 mm left pulmonary nodule. 16.9 mm pleural-based nodule on the left on image 62. Thi s is slightly larger than on the prior study where it measured 13.6 mm. 16.3 mm subpleural nodule on the left. This is not identified on the prior study. Pleural/parenchymal scarring in the lung base s. There is a 15.7 mm masslike opacification in the posterior costophrenic sulcus on the right. PLEURA: No effusions. No calcifications. THYROID: No masses or significant asymmetry. HILAR AND MEDIASTINAL STRUCTURES: Mild left hilar adenopathy. AORTA AND GREAT VESSELS: No aneurysm. No dissection. PULMONARY ARTERIES: No identified pulmonary emboli. Study not optimized for the pulmonary arteries. HEART: No pericardial effusion. HARDWARE AND LIFELINES: None. BONES: No significant finding. OTHER: No other significant finding. IMPRESSION: There are new nodular densities in each lung concerning for metastatic disease. Recomme nd PET-CT. COMPARISON: None. RADIATION DOSE: CT Rad equipment meets quality standard of care and radiation dose reduction techniq ues were employed. CTDIvol: 13.0 - 13.3 mGy. DLP: 2111 mGy-cm. mGy. TECHNIQUE: CT scan of the abdomen and pelvis performed with intravenous and oral contrast using nellie asya scanning technique with dynamic intravenous contrast injection. Images reviewed with lung, soft tissue and bone windows. Reconstructed coronal and sagittal MPR images reviewed. Delayed images for evaluation of the urinary system also acquired and evaluated. All images stored on PACS. All CT scanners at this facility use dose modulation, iterative reconstruction, and/or weight based d osing when appropriate to reduce radiation dose to as low as reasonably achievable (ALARA). [facility]: Dose Right [facility]: SureCare [facility]: Dose Right [facility]: Teradose 4D [facility]: TriggerMail FINDINGS: LIVER: Stable low-density lesions in the liver. No new or enhancing masses. SPLEEN: Normal size. No focal lesions. PANCREAS: No masses. No significant calcifications. No adjacent inflammation or peripancreatic flui d collections. Pancreatic duct not dilated. GALLBLADDER: Gallbladder is mildly distended. No gallstones are present. ADRENAL GLANDS: No significant masses or asymmetry. RIGHT KIDNEY AND URETER: No solid masses. No significant calcifications. No hydronephrosis or hyd roureter. LEFT KIDNEY AND URETER: Surgically absent. AORTA AND VESSELS: No aneurysm. No dissection. Renal arteries, SMA, celiac without stenosis. RETROPERITONEUM: No retroperitoneal adenopathy, hemorrhage or masses. LARGE AND SMALL BOWEL: No dilatation. No masses. No wall thickening. Moderate retained stool in th e left colon and sigmoid colon. APPENDIX: Normal. ABDOMINAL WALL: No hernia or masses. PERITONEAL CAVITY: No free air. No free fluid. No peritoneal implants or masses. PELVIS: No mass or free fluid. Normal bladder. BONES: No significant or acute findings. OTHER: No other significant finding. IMPRESSION: There is no evidence of metastatic disease in the abdomen or pelvis. TECHNICAL DOCUMENTATION: JOB ID: [id number] Quality ID # [id number]: Final reports with documentation of one or more dose reduction techniques (e.g., Au tomated exposure control, adjustment of the mA and/or kV according to patient size, use of iterative reconstruction technique) 2010 [employer] All Rights Reserved Reading location - IP/workstation name: [email or web address]
--- NOTE | 2019-12-13 15:20 | RADIOLOGY REPORT (SQ) ---
EXAM DESCRIPTION: CT CHEST WITH; CT ABD/PELVIS WITH IV ONLY IMAGES COMPLETED DATE/TIME: 12/13/2019 10:30 am REASON FOR STUDY: KIDNEY CA C64.2 MALIGNANT NEOPLASM OF LEFT KIDNEY, EXCEPT RENAL PELVIS CONTRAST TYPE AND DOSE: 100 cc Omnipaque 300- low osmolar. RENAL FUNCTION: Creatinine 1.2 COMPARISON: PET-CT 05/22/2019 TECHNIQUE: CT scan of the chest performed using helical scanning technique with dynamic intravenous contrast injection. Images reviewed with lung, soft tissue and bone windows. Reconstructed coronal a nd sagittal MPR images reviewed. All images stored on PACS. All CT scanners at this facility use dose modulation, iterative reconstruction, and/or weight based d osing when appropriate to reduce radiation dose to as low as reasonably achievable (ALARA). [facility]: Dose Right [facility]: CareDose [facility]: Dose Right [facility]: Teradose 4D [facility]: FaceAlerta RADIATION DOSE: CT Rad equipment meets quality standard of care and radiation dose reduction techniq ues were employed. CTDIvol: 13.0 - 13.3 mGy. DLP: 2111 mGy-cm. . LIMITATIONS: None. FINDINGS: AXILLAE: No adenopathy. CHEST WALL: No masses. No subcutaneous air. LUNGS: Stable 8 mm left pulmonary nodule. 16.9 mm pleural-based nodule on the left on image 62. Thi s is slightly larger than on the prior study where it measured 13.6 mm. 16.3 mm subpleural nodule on the left. This is not identified on the prior study. Pleural/parenchymal scarring in the lung base s. There is a 15.7 mm masslike opacification in the posterior costophrenic sulcus on the right. PLEURA: No effusions. No calcifications. THYROID: No masses or significant asymmetry. HILAR AND MEDIASTINAL STRUCTURES: Mild left hilar adenopathy. AORTA AND GREAT VESSELS: No aneurysm. No dissection. PULMONARY ARTERIES: No identified pulmonary emboli. Study not optimized for the pulmonary arteries. HEART: No pericardial effusion. HARDWARE AND LIFELINES: None. BONES: No significant finding. OTHER: No other significant finding. IMPRESSION: There are new nodular densities in each lung concerning for metastatic disease. Recomme nd PET-CT. COMPARISON: None. RADIATION DOSE: CT Rad equipment meets quality standard of care and radiation dose reduction techniq ues were employed. CTDIvol: 13.0 - 13.3 mGy. DLP: 2111 mGy-cm. mGy. TECHNIQUE: CT scan of the abdomen and pelvis performed with intravenous and oral contrast using nellie asya scanning technique with dynamic intravenous contrast injection. Images reviewed with lung, soft tissue and bone windows. Reconstructed coronal and sagittal MPR images reviewed. Delayed images for evaluation of the urinary system also acquired and evaluated. All images stored on PACS. All CT scanners at this facility use dose modulation, iterative reconstruction, and/or weight based d osing when appropriate to reduce radiation dose to as low as reasonably achievable (ALARA). [facility]: Dose Right [facility]: SureCare [facility]: Dose Right [facility]: Teradose 4D [facility]: FaceAlerta FINDINGS: LIVER: Stable low-density lesions in the liver. No new or enhancing masses. SPLEEN: Normal size. No focal lesions. PANCREAS: No masses. No significant calcifications. No adjacent inflammation or peripancreatic flui d collections. Pancreatic duct not dilated. GALLBLADDER: Gallbladder is mildly distended. No gallstones are present. ADRENAL GLANDS: No significant masses or asymmetry. RIGHT KIDNEY AND URETER: No solid masses. No significant calcifications. No hydronephrosis or hyd roureter. LEFT KIDNEY AND URETER: Surgically absent. AORTA AND VESSELS: No aneurysm. No dissection. Renal arteries, SMA, celiac without stenosis. RETROPERITONEUM: No retroperitoneal adenopathy, hemorrhage or masses. LARGE AND SMALL BOWEL: No dilatation. No masses. No wall thickening. Moderate retained stool in th e left colon and sigmoid colon. APPENDIX: Normal. ABDOMINAL WALL: No hernia or masses. PERITONEAL CAVITY: No free air. No free fluid. No peritoneal implants or masses. PELVIS: No mass or free fluid. Normal bladder. BONES: No significant or acute findings. OTHER: No other significant finding. IMPRESSION: There is no evidence of metastatic disease in the abdomen or pelvis. TECHNICAL DOCUMENTATION: JOB ID: [id number] Quality ID # [id number]: Final reports with documentation of one or more dose reduction techniques (e.g., Au tomated exposure control, adjustment of the mA and/or kV according to patient size, use of iterative reconstruction technique) 2010 [employer]- All Rights Reserved Reading location - IP/workstation name: [email or web address]
== END ==
LOC: RAD 09:42
PROVIDERS: ATTEND Physician Assistant Medical
DX: C64.2 Malignant neoplasm of left kidney, except renal pelvis (principal)
CPT/HCPCS: 71260; 74177; 82565

== ENCOUNTER → 2020-01-01 | Outpatient (CLI) | payer BC ==
--- NOTE | 2020-01-02 11:32 | RADIOLOGY REPORT (SQ) ---
EXAM DESCRIPTION: PET CT SKULL/THIGH IMAGES COMPLETED DATE/TIME: 01/01/2020 12:48 pm REASON FOR STUDY: C64.2 MALIGNANT NEOPLASM OF LEFT KIDNEY, EXCEPT RENAL PELVIS C64.2 MALIGNANT NEOP LASM OF LEFT KIDNEY, EXCEPT RENAL PELVIS COMPARISON: 05/22/2019 PET-CT, CT chest 12/13/2019 RADIONUCLIDE AND DOSE: 10.71 mCi F18 FDG The route of agent administration: Intravenous FASTING BLOOD SUGAR: 93 mg/dl CONTRAST TYPE AND DOSE: No CT contrast given. TECHNIQUE: Blood glucose level was verified. Above dose of FDG was injected intravenously. 2-D seg mented attenuation correction images were obtained from the base of the skull to the midthighs. Nonc ontrast CT images were obtained for attenuation correction and fusion with emission images. CT image s were performed without oral or intravenous contrast and are not sensitive for parenchymal lesions. A series of overlapping emission PET images were obtained. Images reviewed and manipulated at [facility] work station by the radiologist. Images stored on PACS. LIMITATIONS: None. FINDINGS: HEAD AND NECK: Diffuse uptake within the posterior cervical musculature, likely physiolog ic. Additional mildly asymmetric uptake at the vocal folds without CT correlate, likely physiologic. No other areas of abnormal metabolic activity in the soft tissues of the head and neck. CHEST: The left hilar soft tissue fullness appears grossly stable in size compared to recent CT measu ring approximately 25 x 23 mm (series 3, image 91) and demonstrates mild diffuse uptake (max SUV 3.8) . 15 mm left upper lobe subpleural nodule demonstrates mild uptake (max SUV 2.2) (series 3, image 96 ). Smaller more superior left upper lobe nodule measuring 8 mm (series 3, image 87 without significa nt uptake (max SUV 1.3). Previously described right basilar nodular consolidation within the costoph renic sulcus without significant increased uptake (max SUV 2.0) No other areas of abnormal uptake wit hin the chest. No acute intrathoracic findings. Scattered coronary atherosclerosis. Left-sided pul monary nodules and hilar adenopathy as above. Dependent hypoventilatory change with trace left effus ion. ABDOMEN AND PELVIS: Postsurgical changes from the left nephrectomy. Grossly stable appearance of the soft tissue thickening within the nephrectomy bed which abuts the pancreatic tail (series 3, image 1 43) without significant increased uptake (max SUV 1.7). Stable multifocal hypodense hepatic lesions without abnormal uptake, likely cysts. Expected physiologic activity within the gastrointestinal gen itourinary system. No acute intra-abdominal/pelvic findings. PROXIMAL LOWER EXTREMITIES: No areas of abnormal metabolic activity in the soft tissues of the lower extremities. BONES: No abnormal metabolic activity in the visualized skeleton. ADDITIONAL CT FINDINGS: As above. OTHER: Background hepatic activity max SUV 2.8. IMPRESSION: 1. Stable left hilar soft tissue with mild uptake (max SUV 3.8) likely corresponding to site of previously biopsy-proven metastatic disease. 2. Left upper lobe pulmonary nodules, largest measuring 15 mm demonstrates mild uptake (max SUV 2.2) . This is stable from recent chest CT but mildly increased in size from prior PET and highly suspici ous for additional metastatic disease. 3. Stable appearance of the left nephrectomy bed without focal uptake. TECHNICAL DOCUMENTATION: JOB ID: [id number] 2010 [employer]- All Rights Reserved Reading location - IP/workstation name: [email or web address]
== END ==
LOC: RAD 10:08
PROVIDERS: ATTEND Internal Medicine
DX: C64.2 Malignant neoplasm of left kidney, except renal pelvis (principal)
CPT/HCPCS: 78815; A9552

== ENCOUNTER → 2020-04-15 | Outpatient (CLI) | payer BC ==
--- NOTE | 2020-04-16 12:29 | RADIOLOGY REPORT (SQ) ---
EXAM DESCRIPTION: CT CHEST WITH IMAGES COMPLETED DATE/TIME: 04/15/2020 1:08 pm REASON FOR STUDY: KIDNEY CANCER C64.2 MALIGNANT NEOPLASM OF LEFT KIDNEY, EXCEPT RENAL PELVIS COMPARISON: PET from 01/01/[address] of the chest from 12/13/2019. TECHNIQUE: CT scan of the chest performed using helical scanning technique with dynamic intravenous contrast injection. Images reviewed with lung, soft tissue and bone windows. Reconstructed coronal and sagittal MPR and MIP images reviewed. All images stored on PACS. All CT scanners at this facility use dose modulation, iterative reconstruction, and/or weight based d osing when appropriate to reduce radiation dose to as low as reasonably achievable (ALARA). [facility]: Dose Right [facility]: CareDose [facility]: Dose Right [facility]: Teradose 4D [facility]: Voovio aka 3Ditize CONTRAST TYPE AND DOSE: 100 mL Omnipaque 350- low osmolar. RENAL FUNCTION: Creatinine 1.2 milligrams/deciliter. RADIATION DOSE: CT Rad equipment meets quality standard of care and radiation dose reduction techniq ues were employed. CTDIvol: 13.8 - 14.6 mGy. DLP: 2072 mGy-cm. LIMITATIONS: None. FINDINGS: LUNGS AND PLEURA: The trachea and main bronchi are patent. There is no acute consolidatio n, ground-glass opacification, pleural effusion or pneumothorax. NODULES: The solid 7 mm nodule in the left upper lobe (image 47 of series 6), the 15 x 10 mm solid n odule that abuts the pleura in the left upper lobe (image 60 of series 6) and the 3 mm solid nodule i n the right upper lobe (image 45 of series 6) are unchanged. There is no new or enlarging pulmonary nodule. HILAR AND MEDIASTINAL STRUCTURES: The solid mass in the left hilum (image 28 of series 2) is unchange d in size. There is no mediastinal adenopathy or mass. HEART AND VASCULAR STRUCTURES: There is a standard 3 vessel arch. There is no thoracic aortic dissec tion or aneurysm. There is mild atherosclerotic calcification of the coronary arteries. There is no pericardial effusion. HARDWARE: None in the chest. UPPER ABDOMEN: Refer to the separate report of the CT of the abdomen. THYROID AND OTHER SOFT TISSUES: No adenopathy or mass. BONES: No fracture or osseous lesion. OTHER: No other findings. IMPRESSION: Stable pulmonary nodules and left hilar mass as detailed above. TECHNICAL DOCUMENTATION: JOB ID: [id number] Quality ID # [id number]: Final reports with documentation of one or more dose reduction techniques (e.g., Au tomated exposure control, adjustment of the mA and/or kV according to patient size, use of iterative reconstruction technique) 2010 [employer]- All Rights Reserved Reading location - IP/workstation name: [email or web address]
--- NOTE | 2020-04-16 12:31 | RADIOLOGY REPORT (SQ) ---
EXAM DESCRIPTION: CT ABD/PELVIS WITH IV ONLY IMAGES COMPLETED DATE/TIME: 04/15/2020 1:08 pm REASON FOR STUDY: KIDNEY CANCER C64.2 MALIGNANT NEOPLASM OF LEFT KIDNEY, EXCEPT RENAL PELVIS COMPARISON: PET from 01/01/[address] of the abdomen and pelvis with contrast from 12/13/2019. TECHNIQUE: CT scan of the abdomen and pelvis performed using helical scanning technique with dynamic intravenous contrast injection. No oral contrast. Images reviewed with lung, soft tissue, and bone windows. Reconstructed coronal and sagittal MPR images reviewed. Delayed images for evaluation of the urinary system also acquired. All images stored on PACS. All CT scanners at this facility use dose modulation, iterative reconstruction, and/or weight based d osing when appropriate to reduce radiation dose to as low as reasonably achievable (ALARA). [facility]: Dose Right [facility]: CareDose [facility]: Dose Right [facility]: Teradose 4D [facility]: [employer] CONTRAST TYPE AND DOSE: Contrast/concentration: Isovue 300.00 mmol/ml; Total Contrast Delivered: 100 .0 ml; Total Saline Delivered: 71.9 ml RENAL FUNCTION: Creatinine 1.2 milligrams/deciliter. LIMITATIONS: None. FINDINGS: LOWER CHEST: Refer to the separate report of the CT of the chest. LIVER: The morphology of the liver is noncirrhotic. The portal veins are patent. There are numerous hypodense lesions of varying sizes scattered throughout the liver that are unchanged in size and num jonas compared to the CT from 12/13/2019. There is no hypervascular hepatic mass. SPLEEN: No splenomegaly or splenic mass. PANCREAS: No acute gross abnormality of the pancreas. GALLBLADDER: No abnormality that is apparent on CT. ADRENAL GLANDS: No mass or asymmetry. RIGHT KIDNEY AND URETER: The subcentimeter low-attenuation lesions in the lateral cortex of the kidne y are considered too small to characterize. There are parapelvic cysts. There is no solid mass, hyd ronephrosis, nephrolithiasis, hydroureter or ureterolithiasis. LEFT KIDNEY AND URETER: Surgically absent. AORTA AND VESSELS: No aneurysm or dissection of the abdominal aorta. The abdominopelvic vasculature is patent. RETROPERITONEUM: No retroperitoneal adenopathy, hemorrhage or mass. BOWEL AND PERITONEAL CAVITY: No bowel obstruction, bowel wall thickening or pericolonic/ perienteric inflammation. No mesenteric adenopathy, free intraperitoneal fluid or mesenteric/omental inflammatio n. APPENDIX: Normal. PELVIS: The prostate gland measures 4.4 cm in transverse diameter. There is no abnormality of the ur inary bladder. ABDOMINAL WALL: No mass or hernia. BONES: No fracture or osseous lesion. OTHER: No other findings. IMPRESSION: No acute intra-abdominal abnormality. TECHNICAL DOCUMENTATION: JOB ID: [id number] Quality ID # 436: Final reports with documentation of one or more dose reduction techniques (e.g., Au tomated exposure control, adjustment of the mA and/or kV according to patient size, use of iterative reconstruction technique) 2010 [employer]- All Rights Reserved Reading location - IP/workstation name: [email or web address]
== END ==
LOC: RAD 12:40
PROVIDERS: ATTEND Internal Medicine
DX: C64.2 Malignant neoplasm of left kidney, except renal pelvis (principal)
CPT/HCPCS: 71260; 74177; 82565

== ENCOUNTER → 2020-06-25 | Outpatient (CLI) | payer BC ==
--- NOTE | 2020-06-25 10:55 | RADIOLOGY REPORT (SQ) ---
EXAM DESCRIPTION: CT CHEST WITH; CT ABD/PELVIS WITH IV ONLY IMAGES COMPLETED DATE/TIME: 06/25/2020 9:49 am; 06/25/2020 9:52 am REASON FOR STUDY: (C64.2)MALIGNANT NEOPLASM OF LEFT KIDNEY, EXCEPT RENAL PELVIS C64.2 MALIGNANT ERIC PLASM OF LEFT KIDNEY, EXCEPT RENAL PELVIS CONTRAST TYPE AND DOSE: contrast/concentration: Isovue 300.00 mmol/ml; Total Contrast Delivered: 100 .0 ml; Total Saline Delivered: 72.0 ml RENAL FUNCTION: 1.4 COMPARISON: 04/15/2020 TECHNIQUE: CT scan of the chest performed using helical scanning technique with dynamic intravenous contrast injection. Images reviewed with lung, soft tissue and bone windows. Reconstructed coronal a nd sagittal MPR images reviewed. All images stored on PACS. All CT scanners at this facility use dose modulation, iterative reconstruction, and/or weight based d osing when appropriate to reduce radiation dose to as low as reasonably achievable (ALARA). [facility]: Dose Right [facility]: CareDose [facility]: Dose Right [facility]: Teradose 4D [facility]: [employer] RADIATION DOSE: CT Rad equipment meets quality standard of care and radiation dose reduction techniq ues were employed. CTDIvol: 12.3 - 14.0 mGy. DLP: 2133 mGy-cm. . LIMITATIONS: None. FINDINGS: AXILLAE: No adenopathy. CHEST WALL: No masses. No subcutaneous air. LUNGS: The left upper lobe subpleural pulmonary nodule is measured 13.6 mm. This is grossly unchange d from prior exam. Smaller parenchymal nodule measures 7 mm. This is essentially unchanged allowing for scan variance as well. No new nodules. PLEURA: No effusions. No calcifications. THYROID: No masses or significant asymmetry. HILAR AND MEDIASTINAL STRUCTURES: Left hilar mass remains in measures approximately 2.7 cm in size. Persistent heterogeneous attenuation. AORTA AND GREAT VESSELS: No aneurysm. No dissection. PULMONARY ARTERIES: No identified pulmonary emboli. Study not optimized for the pulmonary arteries. HEART: No pericardial effusion. HARDWARE AND LIFELINES: None. BONES: No significant finding. OTHER: No other significant finding. IMPRESSION: Stable CT of the chest with 2.7 cm left hilar mass and 2 left upper lobe pulmonary nodul es measured at 13.6 and 7 mm respectively. Allowing for scan variance these are unchanged from prior exam. COMPARISON: None. RADIATION DOSE: CT Rad equipment meets quality standard of care and radiation dose reduction techniq ues were employed. CTDIvol: 12.3 - 14.0 mGy. DLP: 2133 mGy-cm. mGy. TECHNIQUE: CT scan of the abdomen and pelvis performed with intravenous and oral contrast using nellie asya scanning technique with dynamic intravenous contrast injection. Images reviewed with lung, soft tissue and bone windows. Reconstructed coronal and sagittal MPR images reviewed. Delayed images for evaluation of the urinary system also acquired and evaluated. All images stored on PACS. All CT scanners at this facility use dose modulation, iterative reconstruction, and/or weight based d osing when appropriate to reduce radiation dose to as low as reasonably achievable (ALARA). [facility]: Dose Right [facility]: [employer] [facility]: Dose Right [facility]: Teradose 4D [facility]: OmniForce FINDINGS: LIVER: Multiple hepatic cysts. No suspicious findings. SPLEEN: Normal size. No focal lesions. PANCREAS: No masses. No significant calcifications. No adjacent inflammation or peripancreatic flui d collections. Pancreatic duct not dilated. GALLBLADDER: Clinical history indicates prior cholecystectomy but the gallbladder is in place. ADRENAL GLANDS: Unremarkable. RIGHT KIDNEY AND URETER: No solid masses. No significant calcifications. No hydronephrosis or hyd roureter. Parapelvic cysts are present. There is a small cortical cyst. LEFT KIDNEY AND URETER: Prior left nephrectomy. AORTA AND VESSELS: No aneurysm. No dissection. Renal arteries, SMA, celiac without stenosis. RETROPERITONEUM: No retroperitoneal adenopathy, hemorrhage or masses. LARGE AND SMALL BOWEL: No dilatation. No masses. No wall thickening. APPENDIX: Normal. ABDOMINAL WALL: No hernia or masses. PERITONEAL CAVITY: No free air. No free fluid. No peritoneal implants or masses. PELVIS: No mass or free fluid. Normal bladder. BONES: No significant or acute findings. OTHER: No other significant finding. IMPRESSION: Prior left nephrectomy. No evidence of metastatic disease in the abdomen or pelvis. Hepatic steatosis and stable hepatic cyst. TECHNICAL DOCUMENTATION: JOB ID: [id number] Quality ID # [id number]: Final reports with documentation of one or more dose reduction techniques (e.g., Au tomated exposure control, adjustment of the mA and/or kV according to patient size, use of iterative reconstruction technique) 2010 [employer]- All Rights Reserved Reading location - IP/workstation name: [email or web address]
== END ==
LOC: RAD 08:41
PROVIDERS: ATTEND Internal Medicine
DX: C64.2 Malignant neoplasm of left kidney, except renal pelvis (principal); R91.8 Other nonspecific abnormal finding of lung field; K76.89 Other specified diseases of liver
CPT/HCPCS: 71260; 74177; 82565

== ENCOUNTER 2020-07-15 07:26 | Day surgery (SDC) | payer BC ==
[~2020-07-15 07:26] MED LIST: BUPIVACAINE HCL 0.75% INJ/PF (7.5 MG/1 ML) 10 ML SDV OS PRN; CHONDR SU A NA/HYALUR INTRAOC KIT (SURGICARE) ONE; EPINEPHRINE INJ/PF 1 MG/1 ML AMPULE ONE; KETOROLAC TROMETHAMINE 0.45% 4 DROP/0.4 ML DROPERETTE OS PRN; LIDOCAINE 1% INJ-PF (10 MG/ML) 30 ML SDV ONE; LIDOCAINE 4% INJ/PF (40 MG/ML) 5 ML AMPUL OS PRN
[2020-07-15] MEDS ORDERED: MIDAZOLAM 2 MG/2 ML INJ ONE (07:40)
[2020-07-15] MEDS: TROPICAMIDE 1% OPH SOLN 15 ML OS PRN ×3 (08:17→08:37)
[2020-07-15] MEDS: BESIFLOXACIN HCL 0.6% OPH SUSP 5 ML BOTTLE OS PRN ×4 (08:17→09:24)
[2020-07-15] MEDS: CYCLOPENTOLATE 0.2%/PHENYLEPHRINE 1% OPH SOLN 2 ML OS PRN ×3 (08:17→08:37)
[2020-07-15] MEDS: TETRACAINE HCL 0.5% OPH SOLN 4 ML OS PRN ×3 (08:18→08:58)
[2020-07-15] MEDS: PREDNISOLONE ACETATE 1% OPH SUSP 5 ML OS PRN ×2 (09:24)
[2020-07-15] MEDS: DORZOLAMIDE HCL 2%/TIMOLOL MALEAT 0.5% OPH SOLN 10 ML OS PRN ×2 (09:24)
--- NOTE | 2020-07-15 12:44 | Operative Report ---
Operative Report-[facility] Operative Report: DATE OF SURGERY: 07/15/2020 PREOPERATIVE DIAGNOSIS: CATARACT, LEFT EYE. POSTOPERATIVE DIAGNOSIS: CATARACT, LEFT EYE. PROCEDURE PERFORMED: PHACOEMULSIFICATION WITH POSTERIOR CHAMBER INTRAOCULAR LENS, LEFT EYE. Intraocular Lens Model : DC ornelas 20.0 Total Phaco Time: 13 CDE SURGEON: NORMA BUSBY MD ANESTHESIA: TOPICAL WITH MAC. INDICATIONS FOR SURGERY: Difficultly driving at night PROCEDURE: The patient was brought to the Operating Room and placed on the operative table. Following tetracaine drops, topical anesthesia was administered. This consisted of instrument wipe pledgets soaked in a solution of 4% Xylocaine mixed with 0.75% Marcaine in a 1:2 ratio. A 2 x 1 cm pledget was placed in the superior fornix. A 1 x 1 cm pledget was placed in the inferior fornix. The eye was patched shut for 5 minutes. The patch was removed. The eye was sterilely prepped and draped in the usual manner. Lid speculum was placed in the eye. The pledgets were removed. 4-0 black silk sutures were placed around the superior and the inferior rectus muscles to be used as traction. A conjunctival peritomy was made at the 10 o'clock position. Hemostasis was obtained with bipolar cautery. A posterior limbal groove was created using a crescent knife and dissected anteriorly towards the cornea. A sharp point blade was used to create a paracentesis site at the 2 o'clock position. 0.2 cc non preserved Lidocaine was injected into the anterior chamber. A 2.4 mm keratome was used to enter the anterior chamber through the groove. Viscoelastic was injected into the anterior chamber. An anterior capsulotomy was performed using Utrata forceps in a capsulorrhexis fashion. Hydrodissection and hydrodelineation were performed. Phacoemulsification was performed in [id number] technique. Following this, the I/A unit was used to remove residual cortex. Viscoelastic was injected into the capsular bag. The Intraocular lens was placed in the capsular bag. The I/A unit was used to remove residual viscoelastic. The wound was seen to be watertight under high and low pressure, and no sutures were placed. The intraocular lens was well centered. The pressure was adjusted in the eye to normal pressure. The 4-0 black silk sutures and lid speculum were removed. The eye was shielded after Besivance,prednisolone, and Cosopt drops were placed. The patient tolerated the procedure well and was sent to the Recovery Room in good condition.
== END 2020-07-15 10:00 | disposition home or self-care (01) ==
LOC: SC 07:26
PROVIDERS: ATTEND Ophthalmology
DX: H25.812 Combined forms of age-related cataract, left eye (principal); H53.2 Diplopia; H04.123 Dry eye syndrome of bilateral lacrimal glands; E03.9 Hypothyroidism, unspecified; Z79.899 Other long term (current) drug therapy; I10 Essential (primary) hypertension; J44.9 Chronic obstructive pulmonary disease, unspecified; I73.9 Peripheral vascular disease, unspecified; Z79.02 Long term (current) use of antithrombotics/antiplatelets
CPT/HCPCS: 66984; V2632; J2250; J3490 ×5; J0171